=== PATIENT | female | born 1970 | race Two or more races ===

== ENCOUNTER 2025-04-14 19:21 | Inpatient (IN) | payer BC, MEDICARE ==
[~2025-04-14] VITALS: Ht 167.6 cm; Wt 88.9 kg
[2025-04-14 20:18] LABS: BASOPHILS % (AUTO) 0.8 % (0.0-2.0); EOSINOPHILS # (AUTO) 0.2 K/uL (0.0-0.7); EOSINOPHILS % (AUTO) 2.9 % (0.0-6.0); HEMATOCRIT 37 % (39-51); HEMOGLOBIN 12.3 g/dL (13.5-17.5); LYMPHOCYTES # (AUTO) 0.5 K/uL (0.8-4.8); LYMPHOCYTES % (AUTO) 8.5 % (20.0-44.0); MEAN CORPUSCULAR HEMOGLOBIN 32 PG (26.0-33.0); MEAN CORPUSCULAR HGB CONC 34 g/dl (31.0-36.0); MEAN CORPUSCULAR VOLUME 95 fL (80-96); MONOCYTES # (AUTO) 0.4 K/uL (0.1-1.30); MONOCYTES % (AUTO) 7.6 % (2.0-12.0); NEUTROPHILS # (AUTO) 4.7 K/uL (1.8-8.9); NEUTROPHILS % (AUTO) 80.2 % (43.0-81.0); PLATELET COUNT (AUTO) 162 K/uL (150-450); RED BLOOD CELL COUNT(AUTO) 3.86 MIL/uL (4.5-6.0); RED CELL DISTRIBUTION WIDTH 15.5 % (11.5-15.0); WHITE BLOOD COUNT (AUTO) 5.9 K/uL (4.3-11.0)
[2025-04-14 20:28] LABS: CALCIUM, SERUM 9.1 mg/dL (8.5-10.1); CARBON DIOXIDE 34 mmol/L (21-32); CHLORIDE 97 mmol/L (98-107); CREATININE 4.7 mg/dL (0.6-1.3); GLUCOSE 97 mg/dL (74-106); POTASSIUM 3.8 mmol/L (3.5-5.1); SODIUM SERUM 136 mmol/L (136-145); UREA NITROGEN, BLOOD 28 mg/dL (7-18)
[2025-04-14 20:31] LABS: INR 0.99 (0.91-1.10); PARTIAL THROMBOPLASTIN TIME 25.4 SEC (24.3-34.3); PROTHROMBIN TIME 10.2 SECS (9.2-11.1)
[2025-04-14 20:33] LABS: ALANINE AMINOTRANSFERASE 24 U/L (12-78); ALBUMIN 3.7 g/dL (3.4-5.0); ALKALINE PHOSPHATASE 134 U/L (46-116); ASPARTATE AMINOTRANSFERASE 28 U/L (15-37); BILIRUBIN,DIRECT 0.2 mg/dL (0.0-0.2); BILIRUBIN,TOTAL 0.7 mg/dL (0.2-1.0); TOTAL PROTEIN, SERUM 7.7 g/dL (6.4-8.2)
[2025-04-14 20:41] LABS: LACTIC ACID 0.8 mmol/L (0.4-2.0)
[2025-04-14] MEDS ORDERED: hydrALAZINE HCL IV 20 MG VIAL ONE (21:17)
[2025-04-14] MEDS ORDERED: ACETAMINOPHEN ES 500 MG TABLET ONE (21:18)
[2025-04-14] MEDS ORDERED: PIPERACI/TAZO 3.375GM/D5W 50ML PB IV ONE (21:18)
[2025-04-14] MEDS: ACETAMINOPHEN 325 MG TABLET PO ONE (21:26)
[2025-04-14] MEDS: PIPERACILLIN /TAZOBACTAM 3.375 G in IV D5W 50 ML IV ONE (21:26)
[2025-04-14] MEDS: hydrALAZINE HCL IV 20 MG VIAL IV ONE (21:27)
[2025-04-14 21:47] LABS: APPEARANCE,URINE CLEAR (CLEAR); BILIRUBIN,URINE Negative (NEGATIVE); BLOOD, URINE Trace-lysed Ery/uL (NEGATIVE); COLOR,URINE YELLOW (YELLOW); KETONES,URINE Negative (NEGATIVE); LEUKOCYTE ESTERASE ,URINE Trace (NEGATIVE); PH,URINE 8.5 (5.0-8.0); PROTEIN,URINE >=300 mg/dl (NEGATIVE); UGLUCOSE 250 MG/DL mg/dL (NEGATIVE); UROBILINOGEN,URINE 0.2 EU/dL (0.2)
[2025-04-14 21:49] LABS: NITRITE, URINE NEGATIVE (NEGATIVE)
[2025-04-14 21:51] LABS: ADD URINE CULTURE YES; BACTERIA,URINE Few /HPF (None Seen); CALCIUM PHOSPHATE CRYSTALS,UR Rare /HPF (None Seen); HYALINE CASTS, URINE Few /LPF (None Seen)
[2025-04-14] MEDS ORDERED: ZOLPIDEM TARTRATE 5 MG TABLET PO PRN (23:30)
[2025-04-14] MEDS ORDERED: Z GUARD REMEDY 4 OZ OINT TP PRN (23:30)
[2025-04-14] MEDS ORDERED: ONDANSETRON HCL/PF 4 MG/2 ML VIAL ONE (23:41)
[2025-04-14] MEDS: ONDANSETRON HCL/PF 4 MG/2 ML VIAL IVP PRN (23:44)
[2025-04-15] MEDS ORDERED: VANCOMYCIN 1 GM /D5W 250 ML PB IV ONE (00:07)
[2025-04-15] MEDS: VANCOMYCIN 1 GM in IV D5W 250ml IV ONE (00:36)
[2025-04-15] MEDS ORDERED: ACETAMINOPHEN 325 MG TABLET ONE (03:49)
[2025-04-15] MEDS: ACETAMINOPHEN 325 MG TABLET PO PRN (03:56)
[2025-04-15] MEDS ORDERED: PIPERACI/TAZO 3.375GM/D5W 50ML PB IV ONE (06:38)
[2025-04-15] MEDS: PIPERACILLIN /TAZOBACTAM 2.25 G in IV D5W 50 ML IV ONE (06:43)
[2025-04-15 07:27] LABS: BASOPHILS % (AUTO) 0.7 % (0.0-2.0); EOSINOPHILS # (AUTO) 0.1 K/uL (0.0-0.7); EOSINOPHILS % (AUTO) 1.7 % (0.0-6.0); HEMATOCRIT 34 % (33-45); HEMOGLOBIN 11.4 g/dL (11.5-14.8); LYMPHOCYTES # (AUTO) 0.5 K/uL (0.8-4.8); LYMPHOCYTES % (AUTO) 7.3 % (20.0-44.0); MEAN CORPUSCULAR HEMOGLOBIN 32 PG (26.0-33.0); MEAN CORPUSCULAR HGB CONC 34 g/dl (31.0-36.0); MEAN CORPUSCULAR VOLUME 95 fL (82-100); MONOCYTES # (AUTO) 0.5 K/uL (0.1-1.30); MONOCYTES % (AUTO) 8.3 % (2.0-12.0); NEUTROPHILS # (AUTO) 5.1 K/uL (1.8-8.9); PLATELET COUNT (AUTO) 148 K/uL (150-450); RED BLOOD CELL COUNT(AUTO) 3.54 MIL/uL (4.0-5.2); RED CELL DISTRIBUTION WIDTH 15.6 % (11.5-15.0); WHITE BLOOD COUNT (AUTO) 6.2 K/uL (4.3-11.0)
[2025-04-15] MEDS ORDERED: PANTOPRAZOLE 40 MG TABLET.DR PO ONE (07:50)
[2025-04-15] MEDS: PANTOPRAZOLE 40 MG TABLET.DR PO SCH (08:00)
[2025-04-15 08:07] LABS: CALCIUM, SERUM 9.4 mg/dL (8.5-10.1); CREATININE 5.7 mg/dL (0.6-1.3); MAGNESIUM 2.4 mg/dL (1.8-2.4); PHOSPHORUS 4.8 mg/dL (2.5-4.9); POTASSIUM 4.4 mmol/L (3.5-5.1)
[2025-04-15 08:08] LABS: THYROID STIMULATING HORMONE 2.16 uIU/mL (0.358-3.74)
[2025-04-15] MEDS ORDERED: FOLI1TAB34 PO (08:58)
[2025-04-15] MEDS ORDERED: CLON0.3T PO (08:58)
[2025-04-15] MEDS ORDERED: DOXA1TAB2 PO (08:58)
[2025-04-15] MEDS ORDERED: IRBE300T19 PO (08:58)
[2025-04-15] MEDS ORDERED: LABE200T5 PO (08:58)
[2025-04-15] MEDS ORDERED: BUME1TAB8 PO (08:58)
[2025-04-15] MEDS ORDERED: ATOR80TA PO (08:58)
[2025-04-15] MEDS ORDERED: HYDR100T27 PO (08:58)
[2025-04-15] MEDS ORDERED: INSU100I30 SQ (08:58)
[2025-04-15] MEDS ORDERED: INSU100I14 SQ (08:58)
[2025-04-15] MEDS ORDERED: EZET10TA32 PO (08:58)
[2025-04-15] MEDS ORDERED: SEVE800T28 PO (08:58)
[2025-04-15 09:50] VITALS: BP 169/87; TEMP 101.5; O2SAT 94
[2025-04-15] MEDS: PIPERACILLIN /TAZOBACTAM 2.25 G in IV D5W 50 ML IV SCH (12:30)
[2025-04-15 13:30] VITALS: BP 154/81; TEMP 100.6; O2SAT 94
[2025-04-15] MEDS: HYDROCODONE/APAP 10/325MG TABLET PO PRN (14:59)
[2025-04-15 16:00] VITALS: BP 161/72; TEMP 102.9; O2SAT 94
[2025-04-15] MEDS ORDERED: IOHEXOL-350 100 ML VIAL IV ONE (17:47)
[2025-04-15] MEDS ORDERED: IV NS 0.9% 250 ML IV ONE (17:47)
[2025-04-15] MEDS ORDERED: CT SWABBABLE VALVE TRANS SET 1 EA INFUS.SET MC ONE (17:47)
[2025-04-15 21:09] VITALS: BP 162/73; TEMP 102.2; O2SAT 94
[2025-04-15] MEDS: VANCOMYCIN 500 MG in IV D5W 100 ML IV PRN (22:31)
[2025-04-15 23:13] VITALS: BP 145/102; O2SAT 98
[2025-04-16] VITALS (7 sets, daily range): BP systolic 120–155; BP diastolic 65–88; TEMP 98.4–100.4; O2SAT 93–99
[2025-04-16 06:42] LABS: BASOPHILS % (AUTO) 0.6 % (0.0-2.0); EOSINOPHILS % (AUTO) 0.2 % (0.0-6.0); HEMATOCRIT 31 % (33-45); HEMOGLOBIN 10.7 g/dL (11.5-14.8); LYMPHOCYTES # (AUTO) 0.3 K/uL (0.8-4.8); LYMPHOCYTES % (AUTO) 3.9 % (20.0-44.0); MEAN CORPUSCULAR HEMOGLOBIN 33 PG (26.0-33.0); MEAN CORPUSCULAR HGB CONC 34 g/dl (31.0-36.0); MEAN CORPUSCULAR VOLUME 96 fL (82-100); MONOCYTES # (AUTO) 0.3 K/uL (0.1-1.30); MONOCYTES % (AUTO) 3.9 % (2.0-12.0); NEUTROPHILS # (AUTO) 6.2 K/uL (1.8-8.9); NEUTROPHILS % (AUTO) 91.4 % (43.0-81.0); PLATELET COUNT (AUTO) 137 K/uL (150-450); RED BLOOD CELL COUNT(AUTO) 3.26 MIL/uL (4.0-5.2); RED CELL DISTRIBUTION WIDTH 15.9 % (11.5-15.0); WHITE BLOOD COUNT (AUTO) 6.7 K/uL (4.3-11.0)
[2025-04-16 06:44] LABS: CALCIUM, SERUM 8.4 mg/dL (8.5-10.1); CREATININE 6.1 mg/dL (0.6-1.3); POTASSIUM 4.4 mmol/L (3.5-5.1)
[2025-04-16] MEDS: BLOOD SUGAR DIAGNOSTIC 1 EACH STRIP IN SCH (11:30)
[2025-04-16] MEDS ORDERED: DEXTROSE 50%-WATER 50 ML DISP.SYRIN IV PRN (11:30)
[2025-04-16] MEDS: INSULIN REGULAR, HUMAN 100 UNIT/ML 3 ML VIAL SQ PRN (11:31)
[2025-04-16] MEDS: MAGNESIUM HYDROXIDE 30 ML UDC PO PRN (11:38)
[2025-04-17] VITALS (9 sets, daily range): BP systolic 129–173; BP diastolic 66–85; TEMP 98.1–99.7; O2SAT 91–96
[2025-04-17] MEDS: CLONIDINE HCL 0.1 MG TABLET PO PRN (01:08)
[2025-04-17 06:48] LABS: CALCIUM, SERUM 9.3 mg/dL (8.5-10.1); CREATININE 4.7 mg/dL (0.6-1.3); MAGNESIUM 2.6 mg/dL (1.8-2.4); PHOSPHORUS 4.9 mg/dL (2.5-4.9)
[2025-04-17 07:03] LABS: BASOPHILS % (AUTO) 0.6 % (0.0-2.0); EOSINOPHILS % (AUTO) 0.7 % (0.0-6.0); HEMATOCRIT 33 % (33-45); HEMOGLOBIN 11.3 g/dL (11.5-14.8); LYMPHOCYTES # (AUTO) 0.3 K/uL (0.8-4.8); LYMPHOCYTES % (AUTO) 5.2 % (20.0-44.0); MEAN CORPUSCULAR HEMOGLOBIN 32 PG (26.0-33.0); MEAN CORPUSCULAR HGB CONC 34 g/dl (31.0-36.0); MEAN CORPUSCULAR VOLUME 96 fL (82-100); MONOCYTES # (AUTO) 0.2 K/uL (0.1-1.30); MONOCYTES % (AUTO) 4.6 % (2.0-12.0); NEUTROPHILS # (AUTO) 4.4 K/uL (1.8-8.9); NEUTROPHILS % (AUTO) 88.9 % (43.0-81.0); PLATELET COUNT (AUTO) 155 K/uL (150-450); RED BLOOD CELL COUNT(AUTO) 3.49 MIL/uL (4.0-5.2); WHITE BLOOD COUNT (AUTO) 4.9 K/uL (4.3-11.0)
[2025-04-17] MEDS: BISACODYL SUPP (10 MG) 10 MG/SUPP.RECT SUPP.RECT RC ONE (10:04)
[2025-04-17] MEDS: MAGNESIUM HYDROXIDE 30 ML UDC PO PRN (10:04)
[2025-04-17] MEDS: BISACODYL (5 MG) 5 MG TABLET.DR PO ONE (10:04)
[2025-04-17] MEDS ORDERED: Medication Not On Formulary EA (Labetalol Hcl 400 MG) PO SCH (10:30)
[2025-04-17] MEDS: hydrALAZINE HCL 50 MG TABLET PO SCH (12:32)
[2025-04-17] MEDS: EZETIMIBE 10 MG TABLET PO SCH (12:33)
[2025-04-17] MEDS: DOXAZOSIN MESYLATE (1 MG) 1 MG TABLET PO SCH (12:33)
[2025-04-17] MEDS: CLONIDINE HCL 0.1 MG TABLET PO SCH (12:33)
[2025-04-17] MEDS: LABETALOL HCL (100MG) 100 MG TABLET PO SCH (17:42)
[2025-04-17] MEDS: SEVELAMER CARBONATE 800 MG TABLET PO SCH (17:42)
[2025-04-17] MEDS: MAG HYDROX/AL HYDROX/SIMETH 30 ML UDC PO PRN (23:49)
[2025-04-18] VITALS: BP_SYST 143; BP_SYST 153; BP_DIAS 73; TEMP 99.1; O2SAT 93; O2SAT 94
[2025-04-18 04:00] VITALS: BP 153/75; TEMP 98.2; O2SAT 98
[2025-04-18 07:40] LABS: CALCIUM, SERUM 8.5 mg/dL (8.5-10.1); CREATININE 6.2 mg/dL (0.6-1.3); MAGNESIUM 2.6 mg/dL (1.8-2.4); PHOSPHORUS 3.7 mg/dL (2.5-4.9); POTASSIUM 4.8 mmol/L (3.5-5.1)
[2025-04-18 08:00] VITALS: BP 158/76; TEMP 99.5; O2SAT 94
[2025-04-18 08:28] LABS: BASOPHILS % (AUTO) 0.5 % (0.0-2.0); EOSINOPHILS # (AUTO) 0.1 K/uL (0.0-0.7); EOSINOPHILS % (AUTO) 1.2 % (0.0-6.0); HEMATOCRIT 30 % (33-45); HEMOGLOBIN 10.1 g/dL (11.5-14.8); LYMPHOCYTES # (AUTO) 0.3 K/uL (0.8-4.8); LYMPHOCYTES % (AUTO) 7.3 % (20.0-44.0); MEAN CORPUSCULAR HEMOGLOBIN 33 PG (26.0-33.0); MEAN CORPUSCULAR HGB CONC 34 g/dl (31.0-36.0); MEAN CORPUSCULAR VOLUME 97 fL (82-100); MONOCYTES # (AUTO) 0.2 K/uL (0.1-1.30); MONOCYTES % (AUTO) 4.5 % (2.0-12.0); NEUTROPHILS % (AUTO) 86.5 % (43.0-81.0); PLATELET COUNT (AUTO) 139 K/uL (150-450); RED BLOOD CELL COUNT(AUTO) 3.04 MIL/uL (4.0-5.2); RED CELL DISTRIBUTION WIDTH 15.6 % (11.5-15.0); WHITE BLOOD COUNT (AUTO) 4.6 K/uL (4.3-11.0)
[2025-04-18] MEDS: VIT B CMPLX 3/FA/VIT C/BIOTIN 1 TAB TABLET PO SCH (08:29)
[2025-04-18] MEDS: MULTIVITAMINS,THERAGRAN 1 UDTAB TABLET PO SCH (08:30)
[2025-04-18] MEDS: ATORVASTATIN 40 MG TABLET PO SCH (08:30)
[2025-04-18] MEDS: LOSARTAN POTASSIUM 50 MG TABLET PO SCH (09:35)
[2025-04-18 16:00] VITALS: BP 158/83; TEMP 100.4; O2SAT 93
[2025-04-18 17:30] VITALS: BP 124/60; TEMP 100.2
[2025-04-18 21:25] VITALS: BP 156/77; TEMP 102.7; O2SAT 92
[2025-04-19] VITALS (9 sets, daily range): BP systolic 119–163; BP diastolic 67–82; TEMP 97.7–102.6; O2SAT 90–96
[2025-04-19] MEDS ORDERED: IPRATROPIUM NEB FS 0.5 MG/2.5 ML AMPUL.NEB NEB PRN (01:00)
[2025-04-19] MEDS: LEVALBUTEROL HCL NEB 1.25 MG/0.5 ML VIAL.NEB NEB PRN (01:35)
[2025-04-19] MEDS: BISACODYL SUPP (10 MG) 10 MG/SUPP.RECT SUPP.RECT RC PRN (06:07)
[2025-04-19 06:55] LABS: BASOPHILS % (AUTO) 0.6 % (0.0-2.0); EOSINOPHILS % (AUTO) 0.7 % (0.0-6.0); HEMATOCRIT 31 % (33-45); HEMOGLOBIN 10.7 g/dL (11.5-14.8); LYMPHOCYTES # (AUTO) 0.4 K/uL (0.8-4.8); LYMPHOCYTES % (AUTO) 6.6 % (20.0-44.0); MEAN CORPUSCULAR HEMOGLOBIN 33 PG (26.0-33.0); MEAN CORPUSCULAR HGB CONC 35 g/dl (31.0-36.0); MEAN CORPUSCULAR VOLUME 97 fL (82-100); MONOCYTES # (AUTO) 0.2 K/uL (0.1-1.30); MONOCYTES % (AUTO) 4.4 % (2.0-12.0); NEUTROPHILS % (AUTO) 87.7 % (43.0-81.0); PLATELET COUNT (AUTO) 154 K/uL (150-450); RED CELL DISTRIBUTION WIDTH 15.5 % (11.5-15.0); WHITE BLOOD COUNT (AUTO) 5.7 K/uL (4.3-11.0)
[2025-04-19 07:10] LABS: CALCIUM, SERUM 9.4 mg/dL (8.5-10.1); MAGNESIUM 2.8 mg/dL (1.8-2.4); PHOSPHORUS 2.8 mg/dL (2.5-4.9); POTASSIUM 4.9 mmol/L (3.5-5.1)
[2025-04-19] MEDS: VALSARTAN 80 MG TABLET PO SCH (09:22)
[2025-04-19] MEDS: LABETALOL HCL (100MG) 100 MG TABLET PO SCH (17:20)
[2025-04-20] VITALS (8 sets, daily range): BP systolic 112–170; BP diastolic 60–86; TEMP 98.1–98.4; O2SAT 92–100
[2025-04-20 07:43] LABS: BASOPHILS % (AUTO) 0.5 % (0.0-2.0); EOSINOPHILS # (AUTO) 0.1 K/uL (0.0-0.7); EOSINOPHILS % (AUTO) 1.3 % (0.0-6.0); HEMATOCRIT 31 % (33-45); HEMOGLOBIN 10.5 g/dL (11.5-14.8); LYMPHOCYTES # (AUTO) 0.3 K/uL (0.8-4.8); LYMPHOCYTES % (AUTO) 5.1 % (20.0-44.0); MEAN CORPUSCULAR HEMOGLOBIN 32 PG (26.0-33.0); MEAN CORPUSCULAR HGB CONC 34 g/dl (31.0-36.0); MEAN CORPUSCULAR VOLUME 95 fL (82-100); MONOCYTES # (AUTO) 0.2 K/uL (0.1-1.30); NEUTROPHILS # (AUTO) 5.2 K/uL (1.8-8.9); NEUTROPHILS % (AUTO) 89.1 % (43.0-81.0); PLATELET COUNT (AUTO) 187 K/uL (150-450); RED BLOOD CELL COUNT(AUTO) 3.25 MIL/uL (4.0-5.2); WHITE BLOOD COUNT (AUTO) 5.8 K/uL (4.3-11.0)
[2025-04-20 08:02] LABS: CALCIUM, SERUM 9.2 mg/dL (8.5-10.1); CREATININE 4.8 mg/dL (0.6-1.3); MAGNESIUM 2.7 mg/dL (1.8-2.4); PHOSPHORUS 3.5 mg/dL (2.5-4.9)
[2025-04-20] MEDS: NIFEdipine XL (30MG) 30 MG TAB PO SCH (10:30)
[2025-04-20] MEDS: ISOSORBIDE DINITRATE (20MG) 20 MG TABLET PO SCH (10:31)
[2025-04-20] MEDS: PIPERACILLIN /TAZOBACTAM 2.25 G in IV D5W 50 ML IV SCH (14:00)
[2025-04-21] VITALS (7 sets, daily range): BP systolic 101–155; BP diastolic 64–79; TEMP 97.5–98.4; O2SAT 93–97
[2025-04-21 07:09] LABS: BASOPHILS % (AUTO) 0.5 % (0.0-2.0); EOSINOPHILS # (AUTO) 0.3 K/uL (0.0-0.7); EOSINOPHILS % (AUTO) 4.2 % (0.0-6.0); HEMATOCRIT 32 % (33-45); HEMOGLOBIN 10.8 g/dL (11.5-14.8); LYMPHOCYTES # (AUTO) 0.3 K/uL (0.8-4.8); LYMPHOCYTES % (AUTO) 5.2 % (20.0-44.0); MEAN CORPUSCULAR HEMOGLOBIN 32 PG (26.0-33.0); MEAN CORPUSCULAR HGB CONC 34 g/dl (31.0-36.0); MEAN CORPUSCULAR VOLUME 95 fL (82-100); MONOCYTES # (AUTO) 0.3 K/uL (0.1-1.30); MONOCYTES % (AUTO) 5.1 % (2.0-12.0); NEUTROPHILS # (AUTO) 5.3 K/uL (1.8-8.9); PLATELET COUNT (AUTO) 230 K/uL (150-450); RED BLOOD CELL COUNT(AUTO) 3.37 MIL/uL (4.0-5.2); RED CELL DISTRIBUTION WIDTH 15.5 % (11.5-15.0); WHITE BLOOD COUNT (AUTO) 6.2 K/uL (4.3-11.0)
[2025-04-21 07:38] LABS: ALBUMIN 2.8 g/dL (3.4-5.0); BILIRUBIN,TOTAL 0.8 mg/dL (0.2-1.0); CALCIUM, SERUM 9.9 mg/dL (8.5-10.1); CREATININE 4.8 mg/dL (0.6-1.3); MAGNESIUM 2.7 mg/dL (1.8-2.4); PHOSPHORUS 2.9 mg/dL (2.5-4.9); POTASSIUM 4.5 mmol/L (3.5-5.1)
[2025-04-22] VITALS (11 sets, daily range): BP systolic 115–163; BP diastolic 68–84; TEMP 98.1–99; O2SAT 95–97
[2025-04-22 06:48] LABS: BASOPHILS % (AUTO) 0.7 % (0.0-2.0); EOSINOPHILS # (AUTO) 0.3 K/uL (0.0-0.7); EOSINOPHILS % (AUTO) 4.8 % (0.0-6.0); HEMATOCRIT 35 % (33-45); HEMOGLOBIN 11.6 g/dL (11.5-14.8); LYMPHOCYTES # (AUTO) 0.4 K/uL (0.8-4.8); LYMPHOCYTES % (AUTO) 7.6 % (20.0-44.0); MEAN CORPUSCULAR HEMOGLOBIN 33 PG (26.0-33.0); MEAN CORPUSCULAR HGB CONC 34 g/dl (31.0-36.0); MEAN CORPUSCULAR VOLUME 96 fL (82-100); MONOCYTES # (AUTO) 0.4 K/uL (0.1-1.30); MONOCYTES % (AUTO) 7.9 % (2.0-12.0); NEUTROPHILS # (AUTO) 4.3 K/uL (1.8-8.9); PLATELET COUNT (AUTO) 300 K/uL (150-450); RED BLOOD CELL COUNT(AUTO) 3.59 MIL/uL (4.0-5.2); RED CELL DISTRIBUTION WIDTH 15.6 % (11.5-15.0); WHITE BLOOD COUNT (AUTO) 5.4 K/uL (4.3-11.0)
[2025-04-22 07:44] LABS: ALBUMIN 2.9 g/dL (3.4-5.0); BILIRUBIN,TOTAL 0.8 mg/dL (0.2-1.0); CALCIUM, SERUM 9.7 mg/dL (8.5-10.1); CREATININE 4.1 mg/dL (0.6-1.3); MAGNESIUM 2.6 mg/dL (1.8-2.4); PHOSPHORUS 2.3 mg/dL (2.5-4.9); POTASSIUM 4.3 mmol/L (3.5-5.1); TOTAL PROTEIN, SERUM 8.3 g/dL (6.4-8.2)
[2025-04-23] VITALS: BP 152/77; TEMP 98.4; O2SAT 95
[2025-04-23 00:21] VITALS: BP 152/77; TEMP 98.4; O2SAT 95
[2025-04-23 01:48] VITALS: O2SAT 97
[2025-04-23 02:06] VITALS: O2SAT 98
[2025-04-23 04:00] VITALS: BP 157/86; TEMP 98.2; O2SAT 100
[2025-04-23 06:00] LABS: CREATININE 4.1 mg/dL (0.6-1.3)
[2025-04-23 06:30] VITALS: BP 154/76; TEMP 98.6; O2SAT 95
== END 2025-04-23 12:25 | disposition short-term general hospital (02) | DRG 871 ==
LOC: EDSEX 19:27 → ER 19:27 → TELE IN 22:53 → TELE 04-15 08:20 → UNDODISIN 04-23 08:00 → TELE 04-23 09:53
PROVIDERS: ADMIT Student in an Organized Health Care Education/Training Program
PROC: 5A1D70Z Performance of Urinary Filtration, Intermittent, Less than 6 Hours Per Day (ICD-10-PCS; principal; 2025-04-15)
DX: A41.9 Sepsis, unspecified organism (principal); J18.9 Pneumonia, unspecified organism; N18.6 End stage renal disease; I12.0 Hypertensive chronic kidney disease with stage 5 chronic kidney disease or end stage renal disease; I31.39 Other pericardial effusion (noninflammatory); N39.0 Urinary tract infection, site not specified; E87.1 Hypo-osmolality and hyponatremia; E11.22 Type 2 diabetes mellitus with diabetic chronic kidney disease; K43.9 Ventral hernia without obstruction or gangrene; B96.89 Other specified bacterial agents as the cause of diseases classified elsewhere; Z99.2 Dependence on renal dialysis; N28.1 Cyst of kidney, acquired; E78.5 Hyperlipidemia, unspecified; E66.9 Obesity, unspecified; Z68.31 Body mass index [BMI] 31.0-31.9, adult; D64.9 Anemia, unspecified; K42.9 Umbilical hernia without obstruction or gangrene; K74.60 Unspecified cirrhosis of liver; Z79.4 Long term (current) use of insulin; E87.70 Fluid overload, unspecified; M89.8X9 Other specified disorders of bone, unspecified site; Z79.899 Other long term (current) drug therapy
CPT/HCPCS: 36415; 71045-TC; 71250-TC; 80048-TC; 80053-TC; 80076-TC; 80202-TC; 81001; 82962-TC; 83605-TC; 83735-TC; 84100-TC; 84443-TC; 84484-TC; 85025-TC; 85730-TC; 87040-TC; 87081-TC; 87086-TC; 87340; 90935-TC; 93307-TC; 94760-TC; 94799-TC; 97116-TC; 97530-TC; A4223; G0378; J0360; J1815; J2405; J2543; J3370; J7030; J7050; J7060; Q9967